=== PATIENT | female | born 1990 | race Caucasian/White ===

== ENCOUNTER 2017-01-08 21:51 | Inpatient (IN) | payer MEDICARE, MEDICAID ==
[~2017-01-08] VITALS: Ht 180.3 cm; Wt 102.0 kg
[~2017-01-08 21:51] MED LIST: ACYC-113 PO; ALPR-475 PO; AMIT75TA PO; BUPR-173 PO; BUSP15TA PO; CLIN-60 PO; CLON0.5T PO; DIVA500T2 PO; FLAV100T PO; HYDR25CA PO; LEVE250T28 PO; LITH600C PO; NITR100C56; NITR100C56 PO; ONDA-39 PO; ONDA4TAB10 PO; ONDA4TAB7; OXYC1TAB7 PO; OXYC5TAB2 PO; PHEN100C; PREG75CA; PROM12.553 RC; QUET50TA5 PO; RISP1TAB45; RISP2TAB35 PO; SERT100T; TRAZ100T15 PO
[2017-01-08 22:21] LABS: HEMOGLOBIN 10.3 g/dL (11.7-16.4)
[2017-01-08 22:34] VITALS: BP 90/51
[2017-01-08] MEDS ORDERED: BETAMETHASONE 6 MG/ML, 5ML IM ONE (22:53)
[2017-01-08] MEDS ORDERED: MAGNESIUM SULF. PMX 20GM/500ML 500 ML IV ONE (22:53)
[2017-01-08] MEDS ORDERED: MAGNESIUM SULFATE PMX 4GM/100M 100 ML ONE (22:53)
[2017-01-08] MEDS ORDERED: MAGNESIUM SULFATE PMX 4GM/100M 100 ML IVPB ONE (23:00)
[2017-01-08] MEDS: LACTATED RINGERS 1,000 ML IV SCH (23:03)
[2017-01-08] MEDS: BETAMETHASONE 6 MG/ML, 5ML IM SCH (23:03)
[2017-01-08] MEDS: MAGNESIUM SULF. PMX 20GM/500ML 500 ML IV SCH (23:26)
[2017-01-08] MEDS ORDERED: AMPICILLIN 2 GM IV ONE (23:30)
[2017-01-08] MEDS: PLEASE ENTER WEIGHT MC SCH (23:30)
[2017-01-08] MEDS ORDERED: AMPICILLIN 2 GM in SODIUM CHLORIDE 0.9% 100 ML IV ONE (23:45)
[2017-01-08 23:46] LABS: DAU SCREEN DISCLAIMER
[2017-01-09] VITALS (7 sets, daily range): BP systolic 91–107; BP diastolic 40–59
[2017-01-09] MEDS: LACTATED RINGERS 1,000 ML IV SCH ×3 (00:21→17:46)
[2017-01-09] MEDS: HETASTARCH 0.9 % 500 ML IV SCH ×12 (00:37→22:30)
[2017-01-09] MEDS: AMPICILLIN 1 GM in SODIUM CHLORIDE 0.9% 50 ML IV SCH ×4 (05:30→23:28)
[2017-01-09] MEDS: PLEASE ENTER WEIGHT MC SCH ×2 (07:30→15:30)
[2017-01-09] MEDS: MAGNESIUM SULF. PMX 20GM/500ML 500 ML IV SCH ×3 (08:51→19:02)
[2017-01-09 08:56] LABS: HEMOGLOBIN 7.9 g/dL (11.7-16.4)
[2017-01-09] MEDS ORDERED: MAGNESIUM SULF. PMX 20GM/500ML 500 ML IV ONE ×2 (09:34→17:40)
[2017-01-09] MEDS ORDERED: ACETAMINOPHEN 325 MG TABLET PO ONE (12:00)
[2017-01-09] MEDS: SODIUM CHLORIDE 0.9% 1,000 ML IV SCH ×2 (12:00→20:00)
[2017-01-09] MEDS ORDERED: DIPHENHYDRAMINE 25 MG CAPSULE PO ONE (12:00)
[2017-01-09] MEDS ORDERED: ACETAMINOPHEN 325 MG TABLET ONE ×2 (12:39→18:13)
[2017-01-09] MEDS ORDERED: DIPHENHYDRAMINE 25 MG CAPSULE ONE (12:40)
[2017-01-09] MEDS ORDERED: ZOLPIDEM 10MG TABLET PO PRN (15:30)
[2017-01-09 16:52] LABS: HEMOGLOBIN 7.8 g/dL (11.7-16.4)
[2017-01-09 17:27] LABS: HIV 1&2 ANTIBODY SCREEN Nonreactive (Nonreactive); HIV-1 p24 ANTIGEN Nonreactive (Nonreactive)
[2017-01-09] MEDS: FERROUS SULFATE 325 MG TABLET PO SCH (17:57)
[2017-01-09] MEDS ORDERED: ACETAMINOPHEN 325 MG TABLET PO PRN (18:30)
[2017-01-09 22:43] LABS: HEMOGLOBIN 8.4 g/dL (11.7-16.4)
[2017-01-09] MEDS: BETAMETHASONE 6 MG/ML, 5ML IM SCH (23:08)
[2017-01-10] MEDS: HETASTARCH 0.9 % 500 ML IV SCH ×8 (00:30→14:30)
[2017-01-10] MEDS ORDERED: MAGNESIUM SULF. PMX 20GM/500ML 500 ML IV ONE ×2 (03:24→11:13)
[2017-01-10] MEDS: LACTATED RINGERS 1,000 ML IV SCH ×4 (03:26→22:51)
[2017-01-10] MEDS: MAGNESIUM SULF. PMX 20GM/500ML 500 ML IV SCH ×2 (03:26→11:17)
[2017-01-10] MEDS: SODIUM CHLORIDE 0.9% 1,000 ML IV SCH ×2 (04:00→12:00)
[2017-01-10 06:17] LABS: HEMOGLOBIN 8.3 g/dL (11.7-16.4)
[2017-01-10] MEDS: AMPICILLIN 1 GM in SODIUM CHLORIDE 0.9% 50 ML IV SCH ×2 (06:40→10:46)
[2017-01-10] MEDS ORDERED: PRENATAL VIT/IRON/FA 1 EACH TABLET ONE (08:45)
[2017-01-10] MEDS: PRENATAL VIT/IRON/FA 1 EACH TABLET PO SCH (08:49)
[2017-01-10] MEDS: BUPROPION SR 150 MG TABLET PO SCH (08:49)
[2017-01-10] MEDS: FERROUS SULFATE 325 MG TABLET PO SCH ×2 (08:49→18:22)
[2017-01-10] MEDS: NITROFURANTOIN (MACROBID) 100 MG CAPSULE PO SCH ×2 (10:46→21:13)
[2017-01-10] MEDS: metroNIDAZOLE 500 MG TABLET PO SCH ×2 (10:46→21:13)
[2017-01-10] MEDS ORDERED: OXYTOCIN 30U/ 0.9% NaCL 500ML 500 ML IV SCH (11:38)
[2017-01-10] MEDS ORDERED: LACTATED RINGERS 1,000 ML IV SCH ×2 (11:38→12:51)
[2017-01-10] MEDS ORDERED: METOCLOPRAMIDE 5 MG/ML, 2ML ONE (11:39)
[2017-01-10] MEDS ORDERED: SODIUM CITRATE/CITRIC ACID 30 ML UDC ONE (11:39)
[2017-01-10] MEDS ORDERED: CLINDAMYCIN PMX 900MG/50ML 50 ML ONE (11:41)
[2017-01-10] MEDS ORDERED: FENTANYL PF 100 MCG/2ML ONE (11:44)
[2017-01-10] MEDS ORDERED: CEFAZOLIN 1,000 MG ONE (11:48)
[2017-01-10] MEDS ORDERED: EPHEDRINE 50 MG/ML, 1ML ONE (11:48)
[2017-01-10] MEDS ORDERED: PHENYLEPHRINE 10 MG/ML ONE (11:48)
[2017-01-10] MEDS ORDERED: OXYTOCIN 30U/ 0.9% NaCL 500ML 500 ML ONE ×2 (11:53→13:26)
[2017-01-10] MEDS ORDERED: SODIUM CITRATE/CITRIC ACID 30 ML UDC PO ONE (12:00)
[2017-01-10] MEDS ORDERED: METOCLOPRAMIDE 5 MG/ML, 2ML IV ONE (12:00)
[2017-01-10] MEDS ORDERED: LACTATED RINGERS 1,000 ML IVBOLUS ONE (12:00)
[2017-01-10] MEDS ORDERED: MISOPROSTOL 200 MCG TABLET ONE (12:21)
[2017-01-10] MEDS ORDERED: morphine SULFATE 10 MG/ML, 1ML IVPush PRN ×2 (13:00)
[2017-01-10] MEDS ORDERED: ACETAMINOPHEN 325 MG TABLET PO PRN (13:00)
[2017-01-10] MEDS ORDERED: MISOPROSTOL 200 MCG TABLET PR PRN (13:00)
[2017-01-10] MEDS ORDERED: FENTANYL PF 100 MCG/2ML IV PRN (13:00)
[2017-01-10] MEDS ORDERED: ONDANSETRON 2MG/ML, 2ML IVPush PRN (13:00)
[2017-01-10] MEDS ORDERED: DOCUSATE 100 MG CAPSULE PO PRN (13:00)
[2017-01-10] MEDS ORDERED: METHYLERGONOVINE 0.2 MG/ML IM PRN (13:00)
[2017-01-10] MEDS ORDERED: OXYcodone/APAP 5/325MG TABLET PO PRN (13:00)
[2017-01-10] MEDS ORDERED: OXYcodone 5 MG/5 ML ORAL.SOL UDC PO PRN (13:00)
[2017-01-10] MEDS ORDERED: CARBOPROST TROMETHAMINE 250 MCG/ML, 1ML IM PRN (13:00)
[2017-01-10] MEDS ORDERED: MISOPROSTOL 200 MCG TABLET PR ONE (13:00)
[2017-01-10] MEDS ORDERED: ONDANSETRON 2MG/ML, 2ML IV PRN (13:00)
[2017-01-10] MEDS: OXYTOCIN 30U/ 0.9% NaCL 500ML 500 ML IV SCH ×2 (13:30→22:51)
[2017-01-10] MEDS ORDERED: morphine SULFATE 10 MG/ML, 1ML ONE (14:14)
[2017-01-10] MEDS: morphine SULFATE 10 MG/ML, 1ML IV PRN ×2 (14:17→14:23)
[2017-01-10 16:30] VITALS: BP 114/70
[2017-01-10] MEDS: OXYcodone/APAP 5/325MG TABLET PO PRN ×2 (18:19→22:34)
[2017-01-10 20:20] VITALS: BP 118/69
[2017-01-10] MEDS: IBUPROFEN 600 MG TABLET PO PRN (21:13)
[2017-01-10] MEDS: DOCUSATE 100 MG CAPSULE PO PRN (21:13)
[2017-01-10 21:32] LABS: HEMOGLOBIN 8.1 g/dL (11.7-16.4)
[2017-01-11 00:50] VITALS: BP 109/67
[2017-01-11] MEDS: OXYcodone/APAP 5/325MG TABLET PO PRN ×2 (02:54→07:33)
[2017-01-11] MEDS: IBUPROFEN 600 MG TABLET PO PRN ×3 (02:55→20:42)
[2017-01-11 02:56] VITALS: BP 107/67
[2017-01-11 08:00] VITALS: BP 106/64
[2017-01-11] MEDS: OXYTOCIN 30U/ 0.9% NaCL 500ML 500 ML IV SCH ×2 (08:51→18:51)
[2017-01-11] MEDS: LACTATED RINGERS 1,000 ML IV SCH ×2 (08:51→18:51)
[2017-01-11] MEDS ORDERED: PRENATAL VIT/IRON/FA 1 EACH TABLET PO SCH (09:00)
[2017-01-11] MEDS: BUPROPION SR 150 MG TABLET PO SCH (09:39)
[2017-01-11] MEDS: NITROFURANTOIN (MACROBID) 100 MG CAPSULE PO SCH ×2 (09:39→20:42)
[2017-01-11] MEDS: metroNIDAZOLE 500 MG TABLET PO SCH ×2 (09:39→20:46)
[2017-01-11] MEDS: FERROUS SULFATE 325 MG TABLET PO SCH (09:39)
[2017-01-11] MEDS: PRENATAL VIT/IRON/FA 1 EACH TABLET PO SCH (09:39)
[2017-01-11 09:46] LABS: HEPATITIS C VIRUS ANTIBODY Nonreactive (Nonreactive)
[2017-01-11 11:02] LABS: HEMOGLOBIN 8.1 g/dL (11.7-16.4)
[2017-01-11] MEDS: OXYcodone/APAP 10/325MG TABLET PO PRN ×3 (12:05→20:42)
[2017-01-11 12:15] VITALS: BP 95/61
[2017-01-11] MEDS: FERROUS GLUCONATE 324 MG TABLET PO SCH ×2 (13:49→16:14)
[2017-01-11] MEDS: DOCUSATE 100 MG CAPSULE PO PRN (20:42)
[2017-01-11 22:30] VITALS: BP 101/58
[2017-01-12] MEDS: OXYcodone/APAP 10/325MG TABLET PO PRN ×5 (04:43→21:17)
[2017-01-12] MEDS: IBUPROFEN 600 MG TABLET PO PRN ×3 (04:44→19:52)
[2017-01-12] MEDS: OXYTOCIN 30U/ 0.9% NaCL 500ML 500 ML IV SCH (04:51)
[2017-01-12] MEDS: LACTATED RINGERS 1,000 ML IV SCH (04:51)
[2017-01-12 06:40] LABS: HEMOGLOBIN 8.1 g/dL (11.7-16.4)
[2017-01-12 08:10] VITALS: BP 102/71
[2017-01-12] MEDS: PRENATAL VIT/IRON/FA 1 EACH TABLET PO SCH (09:00)
[2017-01-12] MEDS: FERROUS GLUCONATE 324 MG TABLET PO SCH ×3 (09:05→17:01)
[2017-01-12] MEDS: metroNIDAZOLE 500 MG TABLET PO SCH ×2 (09:05→21:17)
[2017-01-12] MEDS: BUPROPION SR 150 MG TABLET PO SCH (09:05)
[2017-01-12] MEDS: DOCUSATE 100 MG CAPSULE PO PRN (09:05)
[2017-01-12] MEDS: NITROFURANTOIN (MACROBID) 100 MG CAPSULE PO SCH ×2 (09:06→21:17)
[2017-01-12 19:40] VITALS: BP 107/60
[2017-01-13] MEDS: IBUPROFEN 600 MG TABLET PO PRN ×2 (03:33→09:40)
[2017-01-13] MEDS: OXYcodone/APAP 10/325MG TABLET PO PRN ×3 (03:33→13:47)
[2017-01-13 07:05] VITALS: BP 104/62
[2017-01-13] MEDS ORDERED: SENN-1 PO (08:16)
[2017-01-13] MEDS ORDERED: OXYC-229 PO (08:16)
[2017-01-13] MEDS ORDERED: IBUP800T PO (08:16)
[2017-01-13] MEDS ORDERED: FERR325T16 PO (08:17)
[2017-01-13] MEDS ORDERED: NITR100C56 PO (08:18)
[2017-01-13] MEDS ORDERED: METR500T PO (08:19)
[2017-01-13] MEDS: NITROFURANTOIN (MACROBID) 100 MG CAPSULE PO SCH (08:54)
[2017-01-13] MEDS: metroNIDAZOLE 500 MG TABLET PO SCH (08:54)
[2017-01-13] MEDS: BUPROPION SR 150 MG TABLET PO SCH (08:54)
[2017-01-13] MEDS: FERROUS GLUCONATE 324 MG TABLET PO SCH ×2 (08:54→12:00)
[2017-01-13] MEDS: PRENATAL VIT/IRON/FA 1 EACH TABLET PO SCH (08:54)
[2017-01-13] MEDS: DOCUSATE 100 MG CAPSULE PO PRN (08:54)
== END 2017-01-13 14:00 | disposition home or self-care (01) | DRG 765 ==
LOC: LDOP 21:51 → LDIP 22:51 → 2NW 01-10 15:06
PROVIDERS: ADMIT Obstetrics & Gynecology; ATTEND Obstetrics & Gynecology
PROC: 0T9B70Z Drainage of Bladder with Drainage Device, Via Natural or Artificial Opening (ICD-10-PCS; 2017-01-08)
PROC: 30233N1 Transfusion of Nonautologous Red Blood Cells into Peripheral Vein, Percutaneous Approach (ICD-10-PCS; 2017-01-09)
PROC: 30233S1 Transfusion of Nonautologous Globulin into Peripheral Vein, Percutaneous Approach (ICD-10-PCS; 2017-01-09)
PROC: 10D00Z1 Extraction of Products of Conception, Low, Open Approach (ICD-10-PCS; principal; 2017-01-10)
DX: O60.14X0 Preterm labor third trimester with preterm delivery third trimester, not applicable or unspecified (principal); O23.43 Unspecified infection of urinary tract in pregnancy, third trimester; O44.43 Low lying placenta NOS or without hemorrhage, third trimester; N93.9 Abnormal uterine and vaginal bleeding, unspecified; Z3A.01 Less than 8 weeks gestation of pregnancy; Z3A.31 31 weeks gestation of pregnancy; Z37.0 Single live birth; B95.1 Streptococcus, group B, as the cause of diseases classified elsewhere; D50.0 Iron deficiency anemia secondary to blood loss (chronic); O26.893 Other specified pregnancy related conditions, third trimester; F32.9 Major depressive disorder, single episode, unspecified; F41.9 Anxiety disorder, unspecified; G43.909 Migraine, unspecified, not intractable, without status migrainosus; O99.344 Other mental disorders complicating childbirth; O24.420 Gestational diabetes mellitus in childbirth, diet controlled; Z88.6 Allergy status to analgesic agent; Z88.5 Allergy status to narcotic agent; Z91.040 Latex allergy status; Z88.8 Allergy status to other drugs, medicaments and biological substances; Z87.440 Personal history of urinary (tract) infections; Z88.9 Allergy status to unspecified drugs, medicaments and biological substances; Z67.91 Unspecified blood type, Rh negative
CPT/HCPCS: 36415; 76815; 80307; 81001; 82803; 82947; 82962; 83036; 83735; 85025; 85384; 85460; 85461; 85610; 85730; 86592; 86703; 86803; 86850; 86900; 86923; 87077; 87081; 87086; 87186; 87340; 87899; 88305; J0290; J0690; J0702; J2790; J3010; G0435; J2270; J2370; J2590; J2765; J3475; J7120; P9016; Q0163

== ENCOUNTER 2017-05-02 05:01 | Observation (INO) | payer MEDICARE, MEDICAID ==
[~2017-05-02] VITALS: Ht 172.7 cm; Wt 95.0 kg
[~2017-05-02 05:01] MED LIST changes: +FERR325T16 PO; +IBUP800T PO; +METR500T PO; +OXYC-229 PO; +SENN-1 PO
[2017-05-02] MEDS ORDERED: SODIUM CHLORIDE 0.9% 1,000 ML IV ONE (05:13)
[2017-05-02] MEDS ORDERED: ONDANSETRON 2MG/ML, 2ML IVPush ONE (05:30)
[2017-05-02 06:06] LABS: BLOOD UREA NITROGEN 26 mg/dL (7-18)
[2017-05-02 06:12] LABS: ASPARTATE AMINO TRANSFERASE 18 U/L (15-37)
[2017-05-02 06:21] LABS: ACETAMINOPHEN < 2 mcg/mL (10-30)
[2017-05-02 09:01] LABS: DAU SCREEN DISCLAIMER
[2017-05-02] MEDS ORDERED: PANTOPROZOLE 40MG TABLET PO SCH (10:30)
[2017-05-02] MEDS ORDERED: ACETAMINOPHEN 325 MG TABLET PO PRN (10:30)
[2017-05-02] MEDS ORDERED: ONDANSETRON 2MG/ML, 2ML IVPush PRN (10:30)
[2017-05-02] MEDS ORDERED: ENALAPRILAT 1.25 MG/ML, 2ML IVPush PRN (10:30)
[2017-05-02] MEDS ORDERED: BISACODYL 10 MG SUPP PR PRN (10:30)
[2017-05-02] MEDS ORDERED: POLYETHYLENE GLYCOL 17 GM PACKET PO PRN (10:30)
[2017-05-02] MEDS ORDERED: DOCUSATE 100 MG CAPSULE PO PRN (10:30)
[2017-05-02 10:57] VITALS: BP 90/57
[2017-05-02] MEDS ORDERED: SUCR1ORA11 PO (16:14)
[2017-05-02] MEDS ORDERED: HYDR50CA PO (16:18)
[2017-05-02] MEDS ORDERED: OMEP20CA14 PO (16:20)
[2017-05-02] MEDS ORDERED: LITH450T PO (16:22)
[2017-05-02] MEDS ORDERED: TIZA4TAB PO (16:24)
[2017-05-02] MEDS: FERROUS GLUCONATE 324 MG TABLET PO SCH ×2 (16:49→21:42)
[2017-05-02] MEDS: OXYcodone/APAP 10/325MG TABLET PO PRN (18:44)
[2017-05-02 20:00] VITALS: BP 95/59
[2017-05-02] MEDS: TRAZODONE 100MG TABLET PO SCH (21:42)
[2017-05-03 05:41] LABS: BLOOD UREA NITROGEN 19 mg/dL (7-18)
[2017-05-03 08:00] VITALS: BP 129/87
[2017-05-03] MEDS: FERROUS GLUCONATE 324 MG TABLET PO SCH ×3 (12:36→20:28)
[2017-05-03 20:00] VITALS: BP 101/66
[2017-05-03] MEDS: TRAZODONE 100MG TABLET PO SCH (20:28)
[2017-05-04 07:32] VITALS: BP 98/65
[2017-05-04] MEDS: FERROUS GLUCONATE 324 MG TABLET PO SCH ×3 (09:24→21:05)
[2017-05-04] MEDS: OXYcodone/APAP 10/325MG TABLET PO PRN (18:13)
[2017-05-04 20:00] VITALS: BP 101/69
[2017-05-04] MEDS: TRAZODONE 100MG TABLET PO SCH (21:03)
[2017-05-05 07:28] VITALS: BP 90/53
[2017-05-05] MEDS: FERROUS GLUCONATE 324 MG TABLET PO SCH ×3 (09:04→21:43)
[2017-05-05] MEDS: OXYcodone/APAP 10/325MG TABLET PO PRN ×2 (09:11→19:36)
[2017-05-05] MEDS: LORazepam 1MG TABLET PO PRN (09:12)
[2017-05-05 15:59] VITALS: BP 98/68
[2017-05-05 19:24] VITALS: BP 114/74
[2017-05-05] MEDS: TRAZODONE 100MG TABLET PO SCH (21:43)
[2017-05-06] MEDS: OXYcodone/APAP 10/325MG TABLET PO PRN ×4 (02:09→21:56)
[2017-05-06 07:18] VITALS: BP 108/69
[2017-05-06] MEDS: FERROUS GLUCONATE 324 MG TABLET PO SCH ×4 (08:41→20:42)
[2017-05-06] MEDS ORDERED: ONDANSETRON ODT 4 MG ONE (17:36)
[2017-05-06 19:38] VITALS: BP 98/63
[2017-05-06] MEDS: TRAZODONE 100MG TABLET PO SCH (20:42)
[2017-05-07] MEDS: FERROUS GLUCONATE 324 MG TABLET PO SCH ×3 (08:58→22:05)
[2017-05-07] MEDS: OXYcodone/APAP 10/325MG TABLET PO PRN ×2 (10:14→15:35)
[2017-05-07 10:27] VITALS: BP 105/62
[2017-05-07 19:31] VITALS: BP 103/68
[2017-05-07] MEDS: TRAZODONE 100MG TABLET PO SCH (22:05)
[2017-05-08 08:00] VITALS: BP 92/61
[2017-05-08] MEDS: FERROUS GLUCONATE 324 MG TABLET PO SCH ×3 (08:04→21:19)
[2017-05-08] MEDS: OXYcodone/APAP 10/325MG TABLET PO PRN (12:29)
[2017-05-08 19:24] VITALS: BP 104/67
[2017-05-08] MEDS: LORazepam 1MG TABLET PO PRN (19:27)
[2017-05-08] MEDS ORDERED: ACETAMINOPHEN 325 MG TABLET PO PRN (19:30)
[2017-05-08] MEDS ORDERED: DOCUSATE 100 MG CAPSULE PO PRN (19:30)
[2017-05-08] MEDS ORDERED: BISACODYL 10 MG SUPP PR PRN (19:30)
[2017-05-08] MEDS ORDERED: POLYETHYLENE GLYCOL 17 GM PACKET PO PRN (19:30)
[2017-05-08] MEDS: TRAZODONE 100MG TABLET PO SCH (21:20)
[2017-05-09] MEDS: FERROUS GLUCONATE 324 MG TABLET PO SCH ×3 (09:00→21:00)
[2017-05-09 09:36] VITALS: BP 106/72
[2017-05-09] MEDS: LORazepam 1MG TABLET PO PRN (12:35)
[2017-05-09 19:38] VITALS: BP 99/67
[2017-05-09] MEDS: TRAZODONE 100MG TABLET PO SCH (22:23)
[2017-05-10] MEDS: FERROUS GLUCONATE 324 MG TABLET PO SCH ×3 (08:30→21:00)
[2017-05-10 08:34] VITALS: BP 112/72
[2017-05-10 19:56] VITALS: BP 116/67
[2017-05-10] MEDS: TRAZODONE 100MG TABLET PO SCH (20:15)
[2017-05-10] MEDS: BUTALB/APAP/CAFFEINE 50MG/325MG/40MG PO PRN (20:16)
[2017-05-11] MEDS: FERROUS GLUCONATE 324 MG TABLET PO SCH ×3 (09:00→21:00)
[2017-05-11 10:42] VITALS: BP 103/66
[2017-05-11] MEDS: BUTALB/APAP/CAFFEINE 50MG/325MG/40MG PO PRN ×2 (11:54→20:16)
[2017-05-11] MEDS: LORazepam 1MG TABLET PO PRN (14:30)
[2017-05-11 19:53] VITALS: BP 102/68
[2017-05-11] MEDS: OXYcodone/APAP 10/325MG TABLET PO PRN (21:30)
[2017-05-11] MEDS: TRAZODONE 100MG TABLET PO SCH (21:30)
[2017-05-12 07:26] VITALS: BP 101/62
[2017-05-12] MEDS: FERROUS GLUCONATE 324 MG TABLET PO SCH ×2 (12:30→16:00)
[2017-05-12] MEDS: BUTALB/APAP/CAFFEINE 50MG/325MG/40MG PO PRN (15:00)
== END 2017-05-12 18:04 | disposition home or self-care (01) ==
LOC: ED 05:38 → EDIP 08:27 → OBSVTOIN 08:27 → INTOOBSV 08:27 → 3E 10:45
PROVIDERS: ADMIT Hospitalist; ATTEND Hospitalist
DX: T43.212A Poisoning by selective serotonin and norepinephrine reuptake inhibitors, intentional self-harm, initial encounter (principal); T42.4X2A Poisoning by benzodiazepines, intentional self-harm, initial encounter; T43.592A Poisoning by other antipsychotics and neuroleptics, intentional self-harm, initial encounter; T42.8X2A Poisoning by antiparkinsonism drugs and other central muscle-tone depressants, intentional self-harm, initial encounter; T43.622A Poisoning by amphetamines, intentional self-harm, initial encounter; E66.9 Obesity, unspecified; E87.6 Hypokalemia; D72.829 Elevated white blood cell count, unspecified; F31.9 Bipolar disorder, unspecified; F43.10 Post-traumatic stress disorder, unspecified; F41.1 Generalized anxiety disorder; G40.909 Epilepsy, unspecified, not intractable, without status epilepticus; G43.909 Migraine, unspecified, not intractable, without status migrainosus; K21.9 Gastro-esophageal reflux disease without esophagitis; N17.9 Acute kidney failure, unspecified; F29 Unspecified psychosis not due to a substance or known physiological condition; D64.9 Anemia, unspecified; Z86.72 Personal history of thrombophlebitis; Y92.89 Other specified places as the place of occurrence of the external cause; Z91.5 Personal history of self-harm
CPT/HCPCS: 36415; 73610; 80048; 80053; 80178; 80307; 80329; 84703; 85025; 93005; 96361; 96374; 99285; G0378; J2405; J7030; Q0162; G0480

== ENCOUNTER 2017-05-30 18:58 | Emergency (ER) | payer MEDICARE, MEDICAID ==
[~2017-05-30] VITALS: Ht 180.3 cm; Wt 103.9 kg
[~2017-05-30 18:58] MED LIST changes: +HYDR50CA PO; +LITH450T PO; +OMEP20CA14 PO; +SUCR1ORA11 PO; +TIZA4TAB PO
[2017-05-30] MEDS ORDERED: SODIUM CHLORIDE FLUSH 10ML SYR IVF ONE (19:30)
[2017-05-30] MEDS ORDERED: METOCLOPRAMIDE 5 MG/ML, 2ML IVPush ONE (19:30)
[2017-05-30] MEDS ORDERED: DIPHENHYDRAMINE 50 MG/ML, 1ML IVPush ONE (19:30)
[2017-05-30] MEDS ORDERED: SODIUM CHLORIDE 0.9% 1,000ML IVBOLUS ONE (19:30)
[2017-05-30] MEDS ORDERED: LIDOCAINE 1%, 20ML ONE (19:44)
[2017-05-30] MEDS ORDERED: METOCLOPRAMIDE 5 MG/ML, 2ML ONE (19:44)
[2017-05-30] MEDS ORDERED: DIPHENHYDRAMINE 50 MG/ML, 1ML ONE (19:44)
[2017-05-30] MEDS ORDERED: LIDOCAINE-MPF 2% ,5ML ONE (19:51)
[2017-05-30] MEDS ORDERED: LIDOCAINE 2%, 2ML INFIL ONE (20:00)
[2017-05-30 21:49] VITALS: BP 108/63
== END 2017-05-30 21:51 | disposition home or self-care (01) ==
LOC: ED 20:31
DX: G43.001 Migraine without aura, not intractable, with status migrainosus (principal); G89.29 Other chronic pain; R51 Headache; Z90.49 Acquired absence of other specified parts of digestive tract; Z88.6 Allergy status to analgesic agent; Z88.8 Allergy status to other drugs, medicaments and biological substances
CPT/HCPCS: 96361; 96374; 96375; 99285; J1200; J2765; J7030

== ENCOUNTER 2017-06-03 10:24 | Emergency (ER) | payer MEDICARE, MEDICAID ==
[~2017-06-03] VITALS: Ht 180.3 cm; Wt 99.5 kg
[2017-06-03] MEDS ORDERED: ONDANSETRON 2MG/ML, 2ML ONE (11:09)
[2017-06-03] MEDS ORDERED: CEFTRIAXONE PMX 1GM/50ML 50 ML ONE (11:09)
[2017-06-03 11:17] LABS: HEMATOCRIT 35.9 % (34.6-47.8); HEMOGLOBIN 11.6 g/dL (11.7-16.4); WHITE BLOOD COUNT 8.1 x10^3/uL (3.4-10)
[2017-06-03] MEDS ORDERED: ONDANSETRON 2MG/ML, 2ML IVPush ONE (11:30)
[2017-06-03] MEDS ORDERED: CEFTRIAXONE PMX 1GM/50ML 50 ML IV ONE (11:30)
[2017-06-03] MEDS ORDERED: SODIUM CHLORIDE 0.9% 1,000ML IV ONE (11:30)
[2017-06-03] MEDS ORDERED: SODIUM CHLORIDE FLUSH 10ML SYR IVF ONE (11:30)
[2017-06-03 11:44] LABS: BLOOD UREA NITROGEN 16 mg/dL (7-18)
[2017-06-03 11:50] LABS: ASPARTATE AMINO TRANSFERASE 18 U/L (15-37)
[2017-06-03 13:19] VITALS: BP 116/72
== END 2017-06-03 14:39 | disposition home or self-care (01) ==
LOC: ED 11:49
DX: R10.9 Unspecified abdominal pain (principal); G43.909 Migraine, unspecified, not intractable, without status migrainosus
CPT/HCPCS: 36415; 74176; 80053; 81001; 84703; 85025; 87086; 96365; 96366; 96375; 99285; J0696; J2405; J7030

== ENCOUNTER 2017-06-14 13:14 | Emergency (ER) | payer MEDICARE, MEDICAID ==
[~2017-06-14] VITALS: Ht 180.3 cm; Wt 94.9 kg
[2017-06-14 13:35] VITALS: BP 121/78
[2017-06-14] MEDS ORDERED: BUPIVACAINE 0.25% ONE (14:12)
[2017-06-14] MEDS ORDERED: BACITRACIN ZINC OINT 500U/GM, 0.9 GM ONE (14:28)
[2017-06-14] MEDS ORDERED: BUPIVACAINE/PF-EPI 0.25% 1:200K SQ ONE (14:30)
== END 2017-06-14 14:45 | disposition home or self-care (01) ==
LOC: ED 14:34
DX: L03.012 Cellulitis of left finger (principal); Z90.49 Acquired absence of other specified parts of digestive tract; Z88.5 Allergy status to narcotic agent; Z88.8 Allergy status to other drugs, medicaments and biological substances
CPT/HCPCS: 99284

== ENCOUNTER 2017-08-08 19:38 | Emergency (ER) | payer MEDICARE, MEDICAID ==
[~2017-08-08] VITALS: Ht 180.3 cm; Wt 90.1 kg
[~2017-08-08 19:38] MED LIST changes: -CLIN-60 PO; +CLIN150C14 PO; +IBUP-1223 PO; -IBUP800T PO; -ONDA-39 PO; +ONDA4TAB12 PO; -OXYC-229 PO; +OXYC-307 PO
[2017-08-08 19:49] VITALS: BP 121/75
== END 2017-08-08 21:47 | disposition home or self-care (01) ==
LOC: ED 21:40
DX: G89.11 Acute pain due to trauma (principal); M25.531 Pain in right wrist; Z87.891 Personal history of nicotine dependence; W01.0XXA Fall on same level from slipping, tripping and stumbling without subsequent striking against object, initial encounter; Y93.89 Activity, other specified; Y92.410 Unspecified street and highway as the place of occurrence of the external cause; Y99.9 Unspecified external cause status
CPT/HCPCS: 29125; 99284

== ENCOUNTER 2017-08-11 11:08 | Inpatient (IN) | payer MEDICARE, MEDICAID ==
[~2017-08-11] VITALS: Ht 170.2 cm; Wt 92.0 kg
[2017-08-11 12:19] LABS: HEMATOCRIT 43.2 % (34.6-47.8)
[2017-08-11 12:30] LABS: BLOOD UREA NITROGEN 10 mg/dL (7-18)
[2017-08-11 12:33] LABS: ASPARTATE AMINO TRANSFERASE 18 U/L (15-37)
[2017-08-11 12:35] LABS: ACETAMINOPHEN < 2 mcg/mL (10-30)
[2017-08-11] MEDS ORDERED: ACETAMINOPHEN 325 MG TABLET PO PRN (14:00)
[2017-08-11] MEDS ORDERED: ONDANSETRON 2MG/ML, 2ML IVPush PRN (14:00)
[2017-08-11] MEDS: ENOXAPARIN 40 MG/0.4 ML SQ SCH (14:00)
[2017-08-11 16:00] LABS: DAU SCREEN DISCLAIMER
[2017-08-11] MEDS: SODIUM CHLORIDE 0.9% 1,000 ML IV SCH (18:33)
[2017-08-11 19:55] VITALS: BP 119/75
[2017-08-12 00:36] VITALS: BP 99/66
[2017-08-12 05:38] LABS: HEMATOCRIT 40.4 % (34.6-47.8); HEMOGLOBIN 13.3 g/dL (11.7-16.4); WHITE BLOOD COUNT 6.8 x10^3/uL (3.4-10)
[2017-08-12 06:32] LABS: ASPARTATE AMINO TRANSFERASE 21 U/L (15-37); BLOOD UREA NITROGEN 10 mg/dL (7-18)
[2017-08-12] MEDS: SODIUM CHLORIDE 0.9% 1,000 ML IV SCH ×2 (07:00→13:40)
[2017-08-12 07:43] VITALS: BP 108/67
[2017-08-12 13:37] VITALS: BP 119/70
[2017-08-12] MEDS: ENOXAPARIN 40 MG/0.4 ML SQ SCH (14:00)
[2017-08-12 19:42] VITALS: BP 107/67
[2017-08-13 00:32] VITALS: BP 109/72
[2017-08-13 08:05] VITALS: BP_SYST 103; BP_SYST 13; BP_DIAS 62
[2017-08-13 13:35] VITALS: BP 100/55
[2017-08-13] MEDS: ENOXAPARIN 40 MG/0.4 ML SQ SCH (14:00)
[2017-08-13 20:00] VITALS: BP 100/64
[2017-08-13] MEDS ORDERED: ONDANSETRON 2MG/ML, 2ML IVPush PRN (21:30)
[2017-08-13] MEDS ORDERED: ACETAMINOPHEN 325 MG TABLET PO PRN (21:30)
[2017-08-14 00:46] VITALS: BP 104/63
[2017-08-14] MEDS: ENOXAPARIN 40 MG/0.4 ML SQ SCH (14:00)
[2017-08-14 16:41] VITALS: BP 92/62
[2017-08-14 19:18] VITALS: BP 90/57
[2017-08-15 00:03] VITALS: BP 92/52
[2017-08-15 13:02] VITALS: BP 91/52
[2017-08-15] MEDS: ENOXAPARIN 40 MG/0.4 ML SQ SCH (14:00)
[2017-08-15 19:46] VITALS: BP 107/73
[2017-08-16 03:43] VITALS: BP 105/69
[2017-08-16 07:30] VITALS: BP 93/67
[2017-08-16] MEDS: ENOXAPARIN 40 MG/0.4 ML SQ SCH (14:44)
[2017-08-16 14:45] VITALS: BP 146/80
[2017-08-16 19:28] VITALS: BP 105/64
[2017-08-16 21:19] LABS: DAU SCREEN DISCLAIMER
[2017-08-17 02:01] VITALS: BP 130/75
[2017-08-17 08:59] VITALS: BP 99/60
[2017-08-17] MEDS ORDERED: ENOXAPARIN 40 MG/0.4 ML SQ SCH (09:00)
== END 2017-08-17 09:52 | DRG 917 ==
LOC: ED 11:20 → EDIP 12:15 → OBSVTOIN 13:43 → 4WST 18:23 → 3E 08-16 22:14
PROVIDERS: ADMIT Internal Medicine; ATTEND Internal Medicine
DX: T45.0X2A Poisoning by antiallergic and antiemetic drugs, intentional self-harm, initial encounter (principal); G93.41 Metabolic encephalopathy; Z88.8 Allergy status to other drugs, medicaments and biological substances; F15.90 Other stimulant use, unspecified, uncomplicated; F31.9 Bipolar disorder, unspecified; F41.1 Generalized anxiety disorder; G40.909 Epilepsy, unspecified, not intractable, without status epilepticus; Z59.0 Homelessness; Z86.14 Personal history of Methicillin resistant Staphylococcus aureus infection; Z86.72 Personal history of thrombophlebitis; Z91.5 Personal history of self-harm
CPT/HCPCS: 36415; 80053; 80307; 80329; 84703; 85025; 99285; G0378; G0479; G0480; J7030

== ENCOUNTER 2017-08-17 11:39 | Emergency (ER) | payer MEDICARE, MEDICAID ==
[~2017-08-17] VITALS: Ht 180.3 cm; Wt 91.0 kg
[2017-08-17 11:49] VITALS: BP 106/74
== END 2017-08-17 12:40 | disposition home or self-care (01) ==
LOC: ED 12:01
DX: F33.9 Major depressive disorder, recurrent, unspecified (principal)
CPT/HCPCS: 99284

== ENCOUNTER 2017-09-18 15:09 | Emergency (ER) | payer MEDICARE, MEDICAID ==
[~2017-09-18] VITALS: Ht 180.3 cm; Wt 91.0 kg
[2017-09-18 15:09] VITALS: BP 119/70
== END 2017-09-18 17:14 | disposition home or self-care (01) ==
LOC: ED 15:23
DX: S93.401A Sprain of unspecified ligament of right ankle, initial encounter (principal); Z90.49 Acquired absence of other specified parts of digestive tract; X50.1XXA Overexertion from prolonged static or awkward postures, initial encounter; Y93.89 Activity, other specified; Y92.410 Unspecified street and highway as the place of occurrence of the external cause; Y99.9 Unspecified external cause status
CPT/HCPCS: 99284

== ENCOUNTER → 2017-10-07 | Outpatient (CLI) | payer MEDICARE, MEDICAID | END | disposition home or self-care (01) | LOC: LAB 14:28 | PROVIDERS: ATTEND Obstetrics & Gynecology | DX: N91.2 Amenorrhea, unspecified (principal) | CPT/HCPCS: 36415; 84144; 84702; 86900 ==

== ENCOUNTER → 2017-10-14 | Outpatient (CLI) | payer MEDICARE, MEDICAID | END | disposition home or self-care (01) | LOC: LAB 12:36 | PROVIDERS: ATTEND Obstetrics & Gynecology | DX: N91.2 Amenorrhea, unspecified (principal) | CPT/HCPCS: 36415; 84702 ==

== ENCOUNTER 2017-10-30 21:34 | Emergency (ER) | payer MEDICARE, MEDICAID ==
[~2017-10-30] VITALS: Ht 180.3 cm; Wt 83.0 kg
[2017-10-30 22:29] LABS: HCG UR SG 1.032 (1.003-1.030)
[2017-10-30 22:38] LABS: RAPID INFLUENZA A Negative (Negative); RAPID INFLUENZA B Negative (Negative)
[2017-10-30 23:01] VITALS: BP 102/48
[2017-10-30 23:08] LABS: CULTURE INDICATED? YES; MICROSCOPIC INDICATED
== END 2017-10-30 23:30 | disposition home or self-care (01) ==
LOC: ED 22:12
DX: N30.01 Acute cystitis with hematuria (principal); F15.10 Other stimulant abuse, uncomplicated; M79.1 Myalgia; G40.909 Epilepsy, unspecified, not intractable, without status epilepticus; G43.909 Migraine, unspecified, not intractable, without status migrainosus; E66.9 Obesity, unspecified; F43.10 Post-traumatic stress disorder, unspecified
CPT/HCPCS: 81001; 81025; 87077; 87086; 87186; 87400; 99284

== ENCOUNTER 2017-11-21 00:05 | Emergency (ER) | payer MEDICARE, MEDICAID ==
[~2017-11-21] VITALS: Ht 180.3 cm; Wt 85.3 kg
[2017-11-21 01:50] VITALS: BP 131/74
== END 2017-11-21 01:52 | disposition home or self-care (01) ==
LOC: ED 01:11
DX: S89.91XA Unspecified injury of right lower leg, initial encounter (principal); G89.11 Acute pain due to trauma; X58.XXXA Exposure to other specified factors, initial encounter; Y93.89 Activity, other specified; Y92.89 Other specified places as the place of occurrence of the external cause; Y99.8 Other external cause status
CPT/HCPCS: 29505; 96360; 99284

== ENCOUNTER 2019-03-04 12:03 | Emergency (ER) | payer MEDICAID, MEDICARE ==
[~2019-03-04] VITALS: Ht 177.8 cm; Wt 130.3 kg
[~2019-03-04 12:03] MED LIST changes: -SENN-1 PO; +SENN-92 PO; +TRAZ-137 PO; -TRAZ100T15 PO
--- NOTE | 2019-03-04 12:32 | NUR ---
PT AMBULATED BACK TO ROOM WITHOUT DIFFICULTY. RV'WD POC WITH HER. LAB AT BS. PARTNER AT BS.
--- NOTE | 2019-03-04 12:39 | NUR ---
PT INSTRUCTED ON CLEAN CATCH URINE SAMPLE. POC RV'WD WITH PT. US AT BEDSIDE NOW.
[2019-03-04 12:45] LABS: BASOPHILS # (AUTO) 0.02 x10^3/uL (0-0.1); BASOPHILS % (AUTO) 0 % (0-1); EOSINOPHILS # (AUTO) 0.04 x10^3/uL (0-0.4); EOSINOPHILS % (AUTO) 1 % (1-7); LYMPHOCYTES # (AUTO) 2.44 x10^3/uL (1-3.4); LYMPHOCYTES % (AUTO) 30 % (22-44); MD NO; MEAN CORPUSCULAR HEMOGLOBIN 28.2 pg (27.0-34.8); MEAN CORPUSCULAR HGB CONC 33.4 g/dL (32.4-35.8); MEAN CORPUSCULAR VOLUME 84.5 fL (80-100); MEAN PLATELET VOLUME 8.4 fL (7.4-10.4); MONOCYTES # (AUTO) 0.38 x10^3/uL (0.2-0.8); MONOCYTES % (AUTO) 5 % (2-9); NEUTROPHILS # (AUTO) 5.29 x10^3/uL (1.8-6.8); NEUTROPHILS % (AUTO) 65 % (42-75); PLATELET COUNT 235 x10^3/uL (130-400); RED BLOOD COUNT 3.53 x10^6/uL (3.82-5.3); RED CELL DISTRIBUTION WIDTH 16.2 % (9.6-15.2)
[2019-03-04 12:51] LABS: MICROSCOPIC AUTO
[2019-03-04 12:52] LABS: CULTURE INDICATED? YES
[2019-03-04 12:55] LABS: ANION GAP 6 mmol/L (5-15); CALCIUM 8.2 mg/dL (8.5-10.1); CHLORIDE 112 mmol/L (98-107)
[2019-03-04 12:58] LABS: ALANINE AMINOTRANSFERASE 21 U/L (12-78); ALKALINE PHOSPHATASE 73 U/L (45-117); BILIRUBIN,TOTAL 0.1 mg/dL (0.2-1.0); CREATININE 0.57 mg/dL (0.55-1.02); TOTAL PROTEIN 6.5 g/dL (6.4-8.2)
--- NOTE | 2019-03-04 14:05 | NUR ---
PT REFUSED STRAIGHT CATH. ERP NOTIFIED, BACK IN TO SPEAK WITH PT.
[2019-03-04 14:26] VITALS: BP 136/83
--- NOTE | 2019-03-04 14:27 | NUR ---
D/C INSTRUCTIONS, MEDS, & F/U APPT RV'WD WITH PT. INSTRUCTED PT TO RETURN IF LEG SWELLING NOT IMPROVING OR IF UTI SYMPTOMS WORSEN. RX GIVEN X1. PT AMBULATED OUT OF ED WITH SIG OTHER WITHOUT DIFFICULTY.
== END 2019-03-04 14:30 | disposition home or self-care (01) ==
LOC: ED 13:12
DX: O23.42 Unspecified infection of urinary tract in pregnancy, second trimester (principal); O26.892 Other specified pregnancy related conditions, second trimester; M79.662 Pain in left lower leg; F32.9 Major depressive disorder, single episode, unspecified; G43.909 Migraine, unspecified, not intractable, without status migrainosus; Z90.49 Acquired absence of other specified parts of digestive tract; Z90.89 Acquired absence of other organs; Z3A.14 14 weeks gestation of pregnancy
CPT/HCPCS: 36415; 80053; 81001; 84550; 85025; 87077; 87086; 87186; 93970; 99284

== ENCOUNTER 2019-03-17 09:30 | Emergency (ER) | payer MEDICARE ==
[~2019-03-17] VITALS: Ht 177.8 cm; Wt 121.0 kg
[~2019-03-17 09:30] MED LIST changes: +FLUO10CA13 PO; +PREN1TAB60 PO
--- NOTE | 2019-03-17 09:43 | NUR ---
28 Y/O FEMALE BIB AMBULANCE WITH C/O ABD PAIN. PER REPORT PT WAS BROUGHT FROM [facility] ON A LEGAL HOLD. PER PT "I WOKE UP THIS MORNING WITH SOME ABDOMINAL PAIN. IT WAS ABOUT 0500. LAST NIGHT I STARTED SPOTTING. I'M 16 WEEKS WITH TWINS. I'VE BEEN AT [facility] SINCE TUESDAY. I CAME HERE TUESDAY FOR SUICIDAL THOUGHTS AND I WAS SENT THERE. I'M FEELING BETTER, THEY INCREASED MY MEDICATIONS SO THAT HELPS. I DON'T WANT TO HURT MYSELF ANYMORE." PT PLACED ON CONT PULSE OX,NIBP. SITTER FROM [facility] OUTSIDE DOOR. PT ON LEGAL HOLD. NO C/O N/V/D, TRAUMA, SOB, CP, SYNCOPE. PT DENIES SI/HI.
--- NOTE | 2019-03-17 09:49 | NUR ---
BEDSIDE REPORT TO JACOBO CRUZ.
--- NOTE | 2019-03-17 09:55 | NUR ---
Recieved bedside report from JACOBO Bishop. All questions answered. NADN. No obvious defecits observed. Pt has sitter from [place] at bedside. Pt edith SI and HI. Pt connected to NIBP and continous pulse ox. ED PA at bedside. No needs expressed at this time. Call light within reach.
--- NOTE | 2019-03-17 10:30 | NUR ---
Ultrasound at bedside now. NADN. No needs requested. Pt's sitter from [facility] near doorway in direct line of sight for observation.
[2019-03-17 10:36] LABS: BASOPHILS # (AUTO) 0.03 x10^3/uL (0-0.1); BASOPHILS % (AUTO) 0 % (0-1); EOSINOPHILS # (AUTO) 0.02 x10^3/uL (0-0.4); EOSINOPHILS % (AUTO) 0 % (1-7); LYMPHOCYTES # (AUTO) 2.49 x10^3/uL (1-3.4); LYMPHOCYTES % (AUTO) 25 % (22-44); MD NO; MEAN CORPUSCULAR HEMOGLOBIN 28.5 pg (27.0-34.8); MEAN CORPUSCULAR HGB CONC 33.1 g/dL (32.4-35.8); MEAN CORPUSCULAR VOLUME 86.1 fL (80-100); MEAN PLATELET VOLUME 8.6 fL (7.4-10.4); MONOCYTES # (AUTO) 0.51 x10^3/uL (0.2-0.8); MONOCYTES % (AUTO) 5 % (2-9); NEUTROPHILS # (AUTO) 6.83 x10^3/uL (1.8-6.8); NEUTROPHILS % (AUTO) 69 % (42-75); PLATELET COUNT 253 x10^3/uL (130-400); RED BLOOD COUNT 3.97 x10^6/uL (3.82-5.3); RED CELL DISTRIBUTION WIDTH 15.2 % (9.6-15.2)
[2019-03-17 10:40] LABS: ALANINE AMINOTRANSFERASE 17 U/L (12-78); ALBUMIN 2.8 g/dL (3.4-5.0); ANION GAP 8 mmol/L (5-15); CALCIUM 8.6 mg/dL (8.5-10.1); CHLORIDE 109 mmol/L (98-107); CREATININE 0.54 mg/dL (0.55-1.02)
[2019-03-17 10:57] LABS: ALKALINE PHOSPHATASE 83 U/L (45-117); BILIRUBIN,TOTAL 0.2 mg/dL (0.2-1.0); TOTAL PROTEIN 6.5 g/dL (6.4-8.2)
--- NOTE | 2019-03-17 11:04 | NUR ---
Pt denies pain at this time. Ultrasound finished at bedside. Pt ambulates with steady gait and balance to restroom for urine sample.
[2019-03-17 11:40] LABS: CULTURE INDICATED? YES; MICROSCOPIC AUTO
--- NOTE | 2019-03-17 11:43 | NUR ---
Pt resting on gurney watching Martine ECHEVARRIA Sitter from [facility] at bedside in direct line of sight for observation. Pt denies SI or HI. No needs expressed at this time.
[2019-03-17] MEDS ORDERED: RHOGAM FROM BLOOD BANK 1 NOTE EA IM/IV ONE (12:30)
--- NOTE | 2019-03-17 13:01 | NUR ---
LUNCH BREAK NOTE: PT GIVEN DC INSTRUCTIONS. SITTER FROM [place] AT BEDSIDE. WAITING FOR TRANSPORT TO [place] VIA [facility] SINCE PT IS ON LEGAL HOLD.
[2019-03-17 13:02] VITALS: BP 116/68
--- NOTE | 2019-03-17 13:21 | NUR ---
Provided report to JACOBO Clifton at [place]. Answered all questions. Filled out transfer form.
--- NOTE | 2019-03-17 14:43 | NUR ---
Pt tranfered from ED back to [facility] with transportation by EMS with [facility]. Pt left with all personal belongings and d/c paperwork. Pt left with SELAM.
== END 2019-03-17 14:46 ==
LOC: ED 10:12
DX: O20.0 Threatened abortion (principal); G43.909 Migraine, unspecified, not intractable, without status migrainosus; G40.909 Epilepsy, unspecified, not intractable, without status epilepticus; F41.1 Generalized anxiety disorder; F43.10 Post-traumatic stress disorder, unspecified; F32.9 Major depressive disorder, single episode, unspecified
CPT/HCPCS: 36415; 76815; 80053; 81001; 84702; 85025; 86850; 86900; 87086; 96372; 99285; J2790

== ENCOUNTER → 2019-03-20 | Emergency (ER) | payer MEDICARE ==
[~2019-03-20] VITALS: Ht 177.8 cm; Wt 110.0 kg
[~2019-03-20] MED LIST changes: +HYDROcodone/APAP 5/325 TABLET ONE; +HYDROcodone/APAP 5/325 TABLET PO ONE
--- NOTE | 2019-03-20 05:57 | NUR ---
BIB [facility] FOR VAGINAL BLEEDING AND PASSING LARGE BLOOD CLOT THIS MORNING. PT IS 16 WEEKS . PT WAS SEEN HERE A FEW DAYS AGO WITH SAME SYMPTOMS.
--- NOTE | 2019-03-20 06:16 | NUR ---
PT MEDICATED FOR PAIN PER [facility]AR. VSS.
[2019-03-20 06:26] LABS: BASOPHILS # (AUTO) 0.02 x10^3/uL (0-0.1); BASOPHILS % (AUTO) 0 % (0-1); EOSINOPHILS % (AUTO) 1 % (1-7); LYMPHOCYTES # (AUTO) 3.25 x10^3/uL (1-3.4); LYMPHOCYTES % (AUTO) 30 % (22-44); MD NO; MEAN CORPUSCULAR HEMOGLOBIN 28.2 pg (27.0-34.8); MEAN CORPUSCULAR HGB CONC 32.7 g/dL (32.4-35.8); MEAN CORPUSCULAR VOLUME 86.2 fL (80-100); MEAN PLATELET VOLUME 8.5 fL (7.4-10.4); MONOCYTES # (AUTO) 0.68 x10^3/uL (0.2-0.8); MONOCYTES % (AUTO) 6 % (2-9); NEUTROPHILS # (AUTO) 6.82 x10^3/uL (1.8-6.8); NEUTROPHILS % (AUTO) 63 % (42-75); PLATELET COUNT 258 x10^3/uL (130-400); RED BLOOD COUNT 3.95 x10^6/uL (3.82-5.3); RED CELL DISTRIBUTION WIDTH 15.2 % (9.6-15.2)
--- NOTE | 2019-03-20 06:57 | NUR ---
REPORT GIVEN TO RAVEN CENTENO.
--- NOTE | 2019-03-20 07:01 | NUR ---
PT. IS RECEIVING HER BEDSIDE ULTRASOUND. HOB IS ELEVATED. PULSE OX AND BP CUFF ARE IN PLACE.
[2019-03-20 09:16] VITALS: BP 114/48
== END ==
LOC: ED 05:44
DX: O20.0 Threatened abortion (principal); Z3A.16 16 weeks gestation of pregnancy; G89.29 Other chronic pain; Z90.89 Acquired absence of other organs; Z90.49 Acquired absence of other specified parts of digestive tract
CPT/HCPCS: 36415; 76815; 85025; 99284

== ENCOUNTER → 2019-04-20 | Outpatient (CLI) | payer MEDICARE ==
[~2019-04-20] MED LIST changes: -HYDROcodone/APAP 5/325 TABLET ONE; -HYDROcodone/APAP 5/325 TABLET PO ONE
== END | disposition home or self-care (01) ==
LOC: CFH 15:13 → EDSTATUS 15:30
PROVIDERS: ATTEND Obstetrics & Gynecology
DX: O32.1XX2 Maternal care for breech presentation, fetus 2 (principal); O30.002 Twin pregnancy, unspecified number of placenta and unspecified number of amniotic sacs, second trimester; Z3A.21 21 weeks gestation of pregnancy
CPT/HCPCS: 76805; 76819

== ENCOUNTER 2019-08-23 15:21 | Emergency (ER) | payer MEDICARE, MEDICAID ==
[~2019-08-23] VITALS: Ht 177.8 cm; Wt 100.1 kg
[~2019-08-23 15:21] MED LIST changes: -ALPR-475 PO; +ALPR0.5T7 PO; -TIZA4TAB PO; +TIZA4TAB2 PO
--- NOTE | 2019-08-23 15:51 | NUR ---
OFFICE AIDE: PT TO ROOM FROM LOBBY, VIA W/C
--- NOTE | 2019-08-23 16:50 | NUR ---
ST CATH FOR URINE SPECIMEN D/T PT WITH VB POST CSECTION. SPECIMEN WALKED TO LAB. CALL LIGHT WITHIN REACH, WARM BLANKET PROVIDED.
[2019-08-23 17:01] LABS: MICROSCOPIC NOT IND
[2019-08-23 17:11] LABS: CULTURE INDICATED? NO
[2019-08-23 17:25] LABS: ALBUMIN 3.2 g/dL (3.4-5.0); ANION GAP 6 mmol/L (5-15); CALCIUM 8.5 mg/dL (8.5-10.1); CHLORIDE 110 mmol/L (98-107)
[2019-08-23 17:30] LABS: ALANINE AMINOTRANSFERASE 23 U/L (12-78); ALKALINE PHOSPHATASE 127 U/L (45-117); BILIRUBIN,TOTAL 0.3 mg/dL (0.2-1.0); CREATININE 1.05 mg/dL (0.55-1.02); TOTAL PROTEIN 7.4 g/dL (6.4-8.2)
--- NOTE | 2019-08-23 17:35 | NUR ---
BREAK RN: PT RTD FROM US. LAB AT BEDSIDE TO DRAW CBC. PT VSS. NAD NOTED.
[2019-08-23 17:37] VITALS: BP 116/60
[2019-08-23 18:06] LABS: MEAN CORPUSCULAR HEMOGLOBIN 27.6 pg (27.0-34.8); MEAN CORPUSCULAR HGB CONC 32.1 g/dL (32.4-35.8); MEAN PLATELET VOLUME 8.8 fL (7.4-10.4); PLATELET COUNT 325 x10^3/uL (130-400); RED BLOOD COUNT 4.16 x10^6/uL (3.82-5.3); RED CELL DISTRIBUTION WIDTH 24.1 % (9.6-15.2)
--- NOTE | 2019-08-23 18:14 | NUR ---
ALL RESULTS BACK, PT FOR RECHECK.
[2019-08-23 18:59] LABS: MD YES
[2019-08-23 19:01] LABS: LYMPH#(MANUAL) 4.45 x10^3/uL (1-3.4); LYMPHS% (MANUAL) 61 % (22-44); MONOS#(MANUAL) 0.15 x10^3/uL (0.3-2.7); MONOS% (MANUAL) 2 % (2-9); SEGS% (MANUAL) 37 % (42-75)
[2019-08-23 19:02] LABS: ANISOCYTOSIS 2+; HYPOCHROMIA 1+; MICROCYTOSIS 1+; POLYCHROMASIA 1+
[2019-08-23 19:03] LABS: <PLATELET ESTIMATE> ADEQUATE; <PLT MORPHOLOGY> NORMAL PLT MORPH
[2019-08-23 19:16] LABS: AMPHETAMINE SCREEN, URINE Positive (Negative); BARBITURATE SCREEN, URINE Negative (Negative); BENZODIAZEPINE SCREEN, URINE Negative (Negative); CANNABINOID SCREEN, URINE Negative (Negative); COCAINE SCREEN, URINE Negative (Negative); METHADONE SCREEN, URINE Negative (Negative); OPIATE SCREEN, URINE Negative (Negative)
== END 2019-08-23 19:12 | disposition home or self-care (01) ==
LOC: ED 18:30
DX: O72.1 Other immediate postpartum hemorrhage (principal); I10 Essential (primary) hypertension; F32.9 Major depressive disorder, single episode, unspecified; Z90.89 Acquired absence of other organs; Z90.49 Acquired absence of other specified parts of digestive tract
CPT/HCPCS: 36415; 76830; 80053; 80307; 81003; 84702; 85025; 93005; 99284

== ENCOUNTER 2019-09-07 14:13 | Emergency (ER) | payer MEDICARE, MEDICAID ==
[~2019-09-07] VITALS: Ht 177.8 cm; Wt 99.7 kg
[2019-09-07 14:42] VITALS: BP 117/51
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
--- NOTE | 2019-09-07 16:51 | NUR ---
QUALITY MANAGEMENT COORDINATOR AT BEDSIDE APPLYING SPLINT NOW.
== END 2019-09-07 17:26 | disposition home or self-care (01) ==
LOC: ED 17:20
DX: S52.502A Unspecified fracture of the lower end of left radius, initial encounter for closed fracture (principal); Y08.89XA Assault by other specified means, initial encounter; Y93.89 Activity, other specified; Y92.89 Other specified places as the place of occurrence of the external cause; Y99.8 Other external cause status
CPT/HCPCS: 29125; 99283

== ENCOUNTER 2019-09-16 14:06 | Emergency (ER) | payer MEDICARE, MEDICAID ==
[~2019-09-16] VITALS: Ht 177.8 cm; Wt 100.5 kg
[2019-09-16 14:22] VITALS: BP 111/72
--- NOTE | 2019-09-16 15:07 | NUR ---
Patient not in room, no belongings in room x10 minutes. Patient appears to have eloped.
== END 2019-09-16 15:10 | disposition left against medical advice (07) ==
LOC: ED 15:04
DX: R10.10 Upper abdominal pain, unspecified (principal); Z53.21 Procedure and treatment not carried out due to patient leaving prior to being seen by health care provider